=== PATIENT | male | born 1975 | race African-American/Black ===

== ENCOUNTER 2021-03-01 10:11 | Emergency (ER) | payer MEDICAID ==
[~2021-03-01] VITALS: Ht 172.7 cm; Wt 80.0 kg
[2021-03-01 10:15] VITALS: BP 130/88
== END 2021-03-01 11:28 | disposition left against medical advice (07) ==
LOC: ER 10:32
DX: Z04.89 Encounter for examination and observation for other specified reasons (principal); I10 Essential (primary) hypertension; M10.9 Gout, unspecified; Z88.8 Allergy status to other drugs, medicaments and biological substances; Z88.2 Allergy status to sulfonamides; Z88.0 Allergy status to penicillin
CPT/HCPCS: 99283

== ENCOUNTER 2021-03-01 12:56 | Emergency (ER) | payer MEDICAID ==
[~2021-03-01] VITALS: Ht 172.7 cm; Wt 91.0 kg
[2021-03-01 13:52] VITALS: BP 135/91
== END 2021-03-01 15:11 | disposition left against medical advice (07) ==
LOC: ER 12:56
DX: Z53.21 Procedure and treatment not carried out due to patient leaving prior to being seen by health care provider (principal)